=== PATIENT | female | born 1955 | race Caucasian/White ===

== ENCOUNTER 2018-03-25 10:51 | Emergency (ER) | payer OTHER ==
[2018-03-25 11:15] VITALS: O2SAT 97; BMI 33.2
[2018-03-25] MEDS ORDERED: Silver Sulfadiazine 1% Cream (20 gm) TOP STA (11:25)
--- NOTE | 2018-03-25 11:28 | C.PDOC ---
History Of Present Illness 62 y/o female, presents to the ER complaining of left hand pain. Patient states that she was at work heating water in microwave and the hot water spilled on her hand. Denies having changes in sensation and weakness. Of note, patient is unsure if she is UTD with tetanus vaccination, she states that she will follow up with PMD for tetanus vaccination. Time Seen by Provider: 03/25/18 11:09 Chief Complaint (Nursing): Burn History Per: Patient History/Exam Limitations: no limitations Injury Occurred (Timing): Hours Ago: Past Medical History Reviewed: Historical Data, Nursing Documentation, Vital Signs Vital Signs: Last Vital Signs Temp 98.4 F 03/25/18 10:59 Pulse 79 03/25/18 10:59 Resp 18 03/25/18 10:59 BP 178/79 H 03/25/18 10:59 Pulse Ox 97 03/25/18 10:59 - Medical History PMH: HTN Surgical History: Family History: States: [place] (Father age 53) - Social History Hx Tobacco Use: Yes Hx Alcohol Use: Yes Hx Substance Use: No - Immunization History Hx Tetanus Toxoid Vaccination: No Hx Influenza Vaccination: No Hx Pneumococcal Vaccination: No Review Of Systems Except As Marked, All Systems Reviewed And Found Negative. Musculoskeletal: Positive for: Hand Pain (left hand pain) Neurological: Negative for: Weakness, Numbness Physical Exam - Physical Exam Appears: Non-toxic, No Acute Distress Skin: Warm, Dry, Other (mild erythema to dorsal aspect of left hand, non - circumferential; no blistering) Head: Atraumatic, Normacephalic Eye(s): bilateral: Normal Inspection, EOMI Nose: Normal Oral Mucosa: Moist Neck: Normal ROM, Supple Chest: Symmetrical Respiratory: No Accessory Muscle Use Extremity: Normal ROM, No Tenderness, Capillary Refill (< 2 seconds), No Swelling Pulses: Left Radial: Normal, Right Radial: Normal Neurological/Psych: Oriented x3, Normal Speech, Normal Motor, Normal Sensation ED Course And Treatment O2 Sat by Pulse Oximetry: 97 (RA) Pulse Ox Interpretation: Normal Progress Note: Patient was offered tetanus vaccination and pain medications, however patient declined. Silvadene was applied to left hand. Patient has been instructed about wound care. Patient has been discharged and instructed to follow up with PMD in 1-2 days. Disposition - Disposition Disposition: HOME/ ROUTINE Disposition Time: 11:26 Condition: STABLE Additional Instructions: Watch for signs of infection including redness, swelling and discharge. Wound check in 2 days. Return to ER if symptoms persist or worsen. Prescriptions: Silver Sulfadiazine 1% 25 gm [Silvadene 1% 25 gm] 25 gm TP BID #1 cream Instructions: Skin Baltazar (DC) Forms: [facility] (Spanish), Work Excuse - Clinical Impression Clinical Impression: First degree burn - PA / [employer] / Resident Statement MD/DO has reviewed & agrees with the documentation as recorded. - Scribe Statement The provider has reviewed the documentation as recorded by the Scribe Ana Reynolds Provider Attestation All medical record entries made by the Lolaibe were at my direction and personally dictated by me. I have reviewed the chart and agree that the record accurately reflects my personal performance of the history, physical exam, medical decision making, and the department course for this patient. I have also personally directed, reviewed, and agree with the discharge instructions and disposition.
[2018-03-25] MEDS ORDERED: Silver Sulfadiazine 1% Cream (20 gm) ONE (11:33)
[2018-03-25 11:41] VITALS: BP 177/89; PULSE 73; RESP 20; TEMP 98.7
== END 2018-03-25 11:50 | disposition home or self-care (01) ==
LOC: C.ER 10:51
DX: T23.102A Burn of first degree of left hand, unspecified site, initial encounter (principal); X11.8XXA Contact with other hot tap-water, initial encounter; Y92.89 Other specified places as the place of occurrence of the external cause